=== PATIENT | female | born 1930 | race Hispanic/Latino ===

== ENCOUNTER 2016-12-01 12:49 | Outpatient (CLI) | payer MEDICARE, OTHER ==
--- NOTE | 2016-12-06 09:36 | PET Report ---
PET/CT:12/01/16 12:49:00 CLINICAL: Malignant neoplasm right lower lobe bronchus or lung. RADIOPHARMACEUTICAL: 12.583mCi F18-FDG. COMPARISON: 06/30/16 PET/CT TECHNIQUE- Following intravenous injection of F-18 FDG and an approximately 60 minute uptake period, CT and PET images from the mid skull to the upper thighs were acquired with the patient in the fasted state. No contrast was administered. The CT protocol used for this PET CT study is designed for attenuation correction and anatomic localization of PET abnormalities. This help desk supervisor CT is not desired to produce and cannot replace, gwrhk-ea-tst-art diagnostic CT scans with specific imaging protocols for different body parts and indications. Plasma glucose at the time of this test: 67g/dl. The standardized uptake values (SUV) are normalized to patient body weight and indicate the highest activity concentration (SUV max) in a given disease site. FINDINGS: Brain--Physiologic FDG uptake in the visualized regions of the brain. Neck--Physiologic FDG uptake . Chest--Physiologic FDG uptake in mediastinal blood pool and myocardium. Lungs--No abnormal uptake. The non-FDG avid spiculated opacity in the right lower lobe is slightly smaller and measures 2.0 x 1.8 cm. It is also less dense on the last exam. Some adjacent reticular interstitial opacities have resolved but there is more scar and contraction at the scar in the right lower lobe. Mild FDG uptake in the adjacent chest wall with background SUV. Pleura/pericardium--No abnormal uptake. Thoracic nodes--No abnormal uptake. Hepatobiliary--No abnormal uptake. Liver background SUV mean, as a reference for comparing FDG studies, is 2.9 compared to 2.7 on the last exam. No liver mass. Spleen--No abnormal uptake. Pancreas--No abnormal uptake. Adrenal Glands--No abnormal uptake. Kidneys/Ureters/Bladder--No abnormal uptake. Abdominopelvic Nodes--No abnormal uptake. Bowel/Peritoneum/Mesentery--No abnormal uptake. Physiologic uptake in the sigmoid colon and small bowel of the pelvis. Pelvic organs--No abnormal uptake. Bones/Soft Tissues--No abnormal uptake. No suspicious bone lesion. 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 No suspicious findings.
== END 2016-12-01 12:50 | disposition home or self-care (01) ==
LOC: PET 12:49
PROVIDERS: ATTEND Internal Medicine Hematology & Oncology
DX: C34.31 Malignant neoplasm of lower lobe, right bronchus or lung (principal)
CPT/HCPCS: 78815; 82962; A9552

== ENCOUNTER 2016-12-26 15:04 | Outpatient (CLI) | payer MEDICARE ==
[2016-12-26 16:37] LABS: Blood Urea Nitrogen 13 mg/dL (7-17)
--- NOTE | 2016-12-27 07:40 | Magnetic Resonance Report ---
MRI BRAIN WITH/WITHOUT CONTRAST: History lung cancer, memory impairment. Technique: Multiple T1 and T2 weighted images were obtained in multiple planes. Axial diffusion and gradient imaging was performed. Post contrast T1 images in two planes were obtained following IV gadolinium. Findings: No relevant comparison. Advanced diffuse volume loss and nonspecific chronic white matter changes are identified. There is no evidence for acute ischemia, hemorrhage, chronic infarct or extra-axial fluid collection. Ventricular size is normal and symmetric. The basal cisterns are clear. The brainstem and cerebellar hemispheres are within normal limits. The fourth ventricle is midline. The paranasal sinuses and mastoid air cells are well aerated. Normal flow voids are identified in the appropriate vessels at the [place]. Following the administration of IV gadolinium, a 1.4 x 1.1 x 0.9 cm homogeneously enhancing extra-axial mass is identified along the anterior falx. A dural tail is identified. This is highly consistent with a small meningioma. This is likely an incidental finding. No enhancing mass suggestive of metastatic disease is detected. Impression: Chronic volume loss and chronic white matter changes. Small meningioma along the anterior falx. No evidence for metastatic disease. No acute intracranial process.
== END 2016-12-26 15:05 | disposition home or self-care (01) ==
LOC: MRI 15:04
PROVIDERS: ATTEND Internal Medicine Hematology & Oncology
DX: R41.82 Altered mental status, unspecified (principal); C34.31 Malignant neoplasm of lower lobe, right bronchus or lung; J45.909 Unspecified asthma, uncomplicated; J44.9 Chronic obstructive pulmonary disease, unspecified; Z87.891 Personal history of nicotine dependence
CPT/HCPCS: 36415; 70553; 82565; 84520; A9577